=== PATIENT | female | born 1985 | race African-American/Black ===

== ENCOUNTER 2016-12-30 16:43 | Emergency (ER) | payer BC ==
[~2016-12-30] VITALS: Ht 162.6 cm; Wt 131.5 kg
[~2016-12-30 16:43] MED LIST: ALBU8.5H6 INH; CYCL5TAB PO
--- NOTE | 2016-12-30 17:52 | PHYS DOC ---
Past Medical History Past Medical History: Asthma Past Surgical History: No Surgical History Alcohol Use: Occasionally Drug Use: None Adult General Chief Complaint Chief Complaint: LOWER BACK PAIN OR INJURY [facility] Patient is a 31 year old female who presents with low back pain for two days. Reports history of atraumtaic low back pain Denies injury, numbness, tingling , incontinence, fever, urinary symptoms. Review of Systems Review of Systems Constitutional: Denies fever or chills Eyes: Denies change in visual acuity, redness, or eye pain HENT: Denies nasal congestion or sore throat Respiratory: Denies cough or shortness of breath Cardiovascular: No additional information not addressed in HPI GI: Denies abdominal pain, nausea, vomiting, bloody stools or diarrhea : Denies dysuria or hematuria Musculoskeletal: Back pain Integument: Denies rash or skin lesions Neurologic: Denies headache, focal weakness or sensory changes Endocrine: Denies polyuria or polydipsia Allergies Allergies Allergies Coded Allergies Type Severity Reaction Last Updated Verified No Known Drug Allergies 05/19/14 No Physical Exam Physical Exam Constitutional: Obese, no acute distress, non-toxic appearance. HENT: Normocephalic, atraumatic, bilateral external ears normal, oropharynx moist, no oral exudates, nose normal. Eyes: PERRLA, EOMI, conjunctiva normal, no discharge. Neck: Normal range of motion, no tenderness, supple, no stridor. Cardiovascular:Heart rate regular rhythm, no murmur Lungs & Thorax: Bilateral breath sounds clear to auscultation Abdomen: Bowel sounds normal, soft, no tenderness, no masses, no pulsatile masses. Skin: Warm, dry, no erythema, no rash. Back: paraspinous tenderness bilaterally. Extremities: No tenderness, no cyanosis, no clubbing, ROM intact, no edema. Neurologic: Alert and oriented X 3, normal motor function, normal sensory function, no focal deficits noted. Psychologic: Affect normal, judgement normal, mood normal. [] Current Patient Data Vital Signs Vital Signs Date Time Temp Pulse Resp B/P Pulse Ox O2 Delivery O2 Flow Rate FiO2 12/30/16 18:10 98.4 98 18 96 Room Air 98.4 Lab Values Laboratory Tests Test 12/30/16 18:10 Urine Collection Type Unknown Urine Color Yellow Urine Clarity Clear Urine pH 6.5 Urine Specific [place] 1.025 Urine Protein Negativemg/dL (NEG-TRACE) Urine Glucose (UA) Negativemg/dL (NEG) Urine Ketones (Stick) Negativemg/dL (NEG) Urine Blood Negative (NEG) Urine Nitrite Negative (NEG) Urine Bilirubin Negative (NEG) Urine Urobilinogen Dipstick 1.0mg/dL (0.2 mg/dL) Urine Leukocyte Esterase Negative (NEG) Urine RBC 0/HPF (0-2) Urine WBC 0/HPF (0-4) Urine Squamous Epithelial Cells Few/LPF Urine Bacteria Few/HPF (0-FEW) Urine Mucus Mod/LPF EKG EKG [] Radiology/Procedures Radiology/Procedures [] Impressions: low back pain Course & Med Decision Making Course & Med Decision Making Pertinent Labs and Imaging studies reviewed. (See chart for details) [] Dragon Disclaimer Dragon Disclaimer This electronic medical record was generated, in whole or in part, using a voice recognition dictation system. Departure Departure Impression: Primary Impression: Low back pain Disposition: HOME, SELF-CARE Condition: STABLE Referrals: ASHLEE MARIANO MD (PCP) Patient Instructions: Back Pain, Adult, [id number] Additional Instructions: Take medication as prescribed. Follow up with primary doctor in 1-2 days. Return if problems or concerns Scripts Cyclobenzaprine Hcl 10 Mg Tablet1 Tab PO QHS #20 TAB Prov:GOKUL CHURCH APRN 12/30/16 Tramadol Hcl 50 Mg [id number] Mg PO Q6H PRN PAIN #20 TAB Prov:GOKUL CHURCH APRN 12/30/16 GOKUL CHURCH APRN Dec 30, 2016 17:51
[2016-12-30 18:10] VITALS: BP 164/101
[2016-12-30 18:38] LABS: BILIRUBIN,URINE NEGATIVE (NEG); GLUCOSE,URINE NEGATIVE (NEG); NITRITE,URINE NEGATIVE (NEG); PH,URINE 6.5; PROTEIN,URINE NEGATIVE (NEG-TRACE)
[2016-12-30 18:51] LABS: BACTERIA,URINE FEW /HPF (0-FEW); RBC,URINE 0 /HPF (0-2); SQUAMOUS EPITHELIAL CELL,UR FEW /LPF; WBC,URINE 0 /HPF (0-4)
[2016-12-30] MEDS ORDERED: TRAM50TA PO (18:58)
[2016-12-30] MEDS ORDERED: CYCL10TA2 PO (18:58)
== END 2016-12-30 19:01 | disposition home or self-care (01) ==
LOC: ER 16:43
DX: M54.5 Low back pain (principal); J45.909 Unspecified asthma, uncomplicated
CPT/HCPCS: 81001; 99283

== ENCOUNTER 2017-07-14 14:41 | Emergency (ER) | payer BC ==
[~2017-07-14] VITALS: Ht 162.6 cm; Wt 136.1 kg
[~2017-07-14 14:41] MED LIST changes: +CYCL10TA2 PO; +TRAM50TA PO
[2017-07-14 15:54] LABS: BILIRUBIN,URINE NEGATIVE (NEG); GLUCOSE,URINE NEGATIVE (NEG); NITRITE,URINE NEGATIVE (NEG); PROTEIN,URINE NEGATIVE (NEG-TRACE)
[2017-07-14 15:57] LABS: BASO % 0 % (0-3); EOS % 4 % (0-3); HEMATOCRIT 33.4 % (36.0-47.0); HEMOGLOBIN 10.7 g/dL (12.0-15.5); LYMPH # 2.3 x10^3/uL (1.0-4.8); LYMPH % 20 % (24-48); MEAN CORPUSCULAR HEMOGLOBIN 23 pg (25-35); MEAN CORPUSCULAR HGB CONC 32 g/dL (31-37); MEAN CORPUSCULAR VOLUME 73 fL (79-100); MONO % 7 % (0-9); NEUT % 70 % (31-73); PLATELET COUNT 365 x10^3/uL (140-400); RED CELL DISTRIBUTION WIDTH 17.2 % (11.5-14.5); WHITE BLOOD COUNT 11.7 x10^3/uL (4.0-11.0)
[2017-07-14] MEDS ORDERED: IV NORMAL SALINE 1000ML BAG 1,000 ML IV ONE (16:00)
--- NOTE | 2017-07-14 16:01 | EKG ---
[facility] [address] [place] [address] Test Date: 2017-07-14 Test Time: 15:46:15 Pat Name: MICHAEL CALLE Department: Room: Gender: F Literature Teacher: : 1985 Requested By: AUGUST LISA Order Number: [id number] Reading MD: Sharmaine Camacho Measurements Intervals [place] Rate: 84 P: 23 NE: 128 QRS: 0 QRSD: 94 T: 10 QT: 384 QTc: 457 Interpretive Statements SINUS RHYTHM LEFTWARD AXIS OTHERWISE NORMAL ECG Electronically Signed On 07-15-2017 16:22:33 CDT by Sharmaine Camacho
[2017-07-14 16:05] LABS: CALCIUM 8.8 mg/dL (8.5-10.1); CREATININE 0.7 mg/dL (0.6-1.0); GFR 117.3
[2017-07-14 16:05] LABS: BACTERIA,URINE FEW /HPF (0-FEW); RBC,URINE 0 /HPF (0-2); SQUAMOUS EPITHELIAL CELL,UR MOD /LPF
[2017-07-14 16:10] LABS: ALBUMIN 3.3 g/dL (3.4-5.0); ALBUMIN/GLOBULIN RATIO 0.8 (1.0-1.7); TOTAL BILIRUBIN 0.5 mg/dL (0.2-1.0); TOTAL PROTEIN 7.3 g/dL (6.4-8.2)
[2017-07-14] MEDS ORDERED: hydroCHLOROthiazide 25 MG TABLET PO ONE (17:30)
[2017-07-14] MEDS ORDERED: hydroCHLOROthiazide 12.5 MG CAPSULE PO ONE ×2 (17:30)
[2017-07-14 18:45] VITALS: BP 163/99
[2017-07-14] MEDS ORDERED: HYDR50TA6 PO (18:57)
[2017-07-14] MEDS ORDERED: CEPH-264 PO (18:57)
--- NOTE | 2017-07-14 18:57 | PHYS DOC ---
Past Medical History Past Medical History: Asthma Past Surgical History: No Surgical History Alcohol Use: Occasionally Drug Use: None Adult General Chief Complaint Chief Complaint: WEAKNESS/GENERALIZED HPI HPI Patient is a 32 year old female who presents here today secondary to generalized weakness, sore throat, lightheadedness, and left lower abdominal pain. Patient reports that yesterday her blood pressure was elevated and she took a clonidine pill one of her coworkers. Patient reports that she does have a history of asthma. Patient denies any history of hypertension. Patient denies any diabetes liver longer kidney problems. Patient denies any prior abdominal or chest surgeries. Patient does not smoke drink or do any drugs. Patient has no known drug allergies. Patient denies any recent fevers shakes chills nausea vomiting diarrhea. Patient reports that she's had intermittent left lower quadrant, pain for approximately 1 year. Patient has a dysuria frequency urgency. Patient reports her last menstrual period was approximately one week ago. Review of systems: Constitutional: Denies fever or chills Eyes: Denies change in visual acuity, redness, or eye pain HENT: Denies nasal congestion or sore throat All other review systems are negative except as documented in the history of present illness portion. Physical exam: Constitutional: Well developed, well nourished, no acute distress, non-toxic appearance. HENT: Normocephalic, atraumatic, bilateral external ears normal, nose normal. Eyes: EOMI, conjunctiva normal, no discharge. Neck: Normal range of motion, no tenderness, supple, no stridor. Cardiovascular:Heart rate regular rhythm Lungs & Thorax: Bilateral breath sounds clear to auscultation no respiratory distress Abdomen: Bowel sounds normal, soft, no tenderness, no masses, no pulsatile masses. Skin: Warm, dry, no erythema, no rash. Back: No tenderness, no CVA tenderness. Extremities: No tenderness, no cyanosis, no clubbing, ROM intact, no edema. Neurologic: Alert and oriented X 3, normal motor function, normal sensory function, no focal deficits noted. Psychologic: Affect normal, judgement normal, mood normal. Patient's ER physical exam was unremarkable. Patient's HEENT exam was normal. Patient's oropharynx is clear. Patient has no lymphadenopathy. Patient and rigidity. Patient had normal funduscopic exam. No lower extremity edema, no JVD , no split S2, no S3. No signs or symptoms consistent with CHF left-sided or right-sided. Patient's ER workup was significant for a normal chest x-ray and EKG. Chest x-ray: Normal heart, no infiltrates or effusions, no emesis of pulmonary edema. Interpreted by LESLYE Odonnell. EKG: Normal sinus rhythm at a heart rate of 84. Nonspecific ST-T wave abnormalities. No criteria for LVH. Normal chamber sizes. Normal intervals. Interpreted by ER Jorge Luis Assessment and plan 1. Hypertension: She likely has untreated hypertension. Patient did take a clonidine from her coworkers yesterday secondary to it being elevated at work when they checked it. Patient's blood pressure here is been elevated in the 170- 190 range systolic. Patient will be started on hydrochlorothiazide here in the ER and will be instructed to follow-up with her primary care physician for further management of her hypertension. Patient be given HCTZ 50 mg by mouth prednisone dose was discharged with a prescription for HCTZ 50 mg daily. 2. Elevated BNP: A long discussion with the patient regarding her elevated BNP and its significance. Patient needs close follow-up with her primary care physician and referral to a lactation coordinator for an outpatient echocardiogram. I discussed with the patient the threat of hypertension for health long-term. I also discussed with her the threat of her obesity to her health long-term. Patient will follow-up with her primary care physician for further management of her weight loss program as well as her hypertension. Patient will need a cardiology follow-up as an outpatient. Patient is currently clinically and hemodynamically stable. Patient currently does not show any signs or symptoms of pulmonary edema, CHF. 3. Sore throat: Patient presents with sinus symptoms consistent with viral URI symptoms or hayfever. Patient was instructed to avoid Sudafed. Patient may take Benadryl as needed for the symptoms. Current Medications Current Medications Current Medications Medications (Trade) Dose Ordered Sig/Loyd Start Time Stop Time Status Last Admin Dose Admin Hydrochlorothiazide (Hydrodiuril) 50 mg 1X ONCE 07/14/17 17:30 07/14/17 17:31 Cancel Hydrochlorothiazide (Microzide) 50 mg 1X ONCE 07/14/17 17:30 07/14/17 17:31 DC 07/14/17 17:29 50 MG Sodium Chloride 1,000 ml @ 1,000 mls/hr 1X ONCE 07/14/17 16:00 07/14/17 16:59 DC 07/14/17 16:29 1,000 MLS/HR Allergies Allergies Allergies Coded Allergies Type Severity Reaction Last Updated Verified No Known Drug Allergies 05/19/14 No Current Patient Data Vital Signs Vital Signs Date Time Temp Pulse Resp B/P (MAP) Pulse Ox O2 Delivery O2 Flow Rate FiO2 07/14/17 17:30 82 158/104 (122) 99 Room Air 07/14/17 14:50 98.6 16 98.6 Lab Values Laboratory Tests Test 07/14/17 14:18 07/14/17 14:50 07/14/17 15:35 POC Urine HCG, Qualitative Hcg negative (Negative) Urine Collection Type Unknown Urine Color Yellow Urine Clarity Clear Urine pH 6.0 Urine Specific [place] 1.025 Urine Protein Negative mg/dL (NEG-TRACE) Urine Glucose (UA) Negative mg/dL (NEG) Urine Ketones (Stick) Negative mg/dL (NEG) Urine Blood Negative (NEG) Urine Nitrite Negative (NEG) Urine Bilirubin Negative (NEG) Urine Urobilinogen Dipstick 1.0 mg/dL (0.2 mg/dL) Urine Leukocyte Esterase Negative (NEG) Urine RBC 0 /HPF (0-2) Urine WBC 5-10 /HPF (0-4) Urine Squamous Epithelial Cells Mod /LPF Urine Bacteria Few /HPF (0-FEW) Urine Mucus Slight /LPF White Blood Count 11.7 x10^3/uL (4.0-11.0) H Red Blood Count 4.60 x10^6/uL (3.50-5.40) Hemoglobin 10.7 g/dL (12.0-15.5) L Hematocrit 33.4 % (36.0-47.0) L Mean Corpuscular Volume 73 fL (79-100) L Mean Corpuscular Hemoglobin 23 pg (25-35) L Mean Corpuscular Hemoglobin Concent 32 g/dL (31-37) Red Cell Distribution Width 17.2 % (11.5-14.5) H Platelet Count 365 x10^3/uL (140-400) Neutrophils (%) (Auto) 70 % (31-73) Lymphocytes (%) (Auto) 20 % (24-48) L Monocytes (%) (Auto) 7 % (0-9) Eosinophils (%) (Auto) 4 % (0-3) H Basophils (%) (Auto) 0 % (0-3) Neutrophils # (Auto) 8.1 x10^3uL (1.8-7.7) H Lymphocytes # (Auto) 2.3 x10^3/uL (1.0-4.8) Monocytes # (Auto) 0.8 x10^3/uL (0.0-1.1) Eosinophils # (Auto) 0.4 x10^3/uL (0.0-0.7) Basophils # (Auto) 0.0 x10^3/uL (0.0-0.2) Sodium Level 144 mmol/L (136-145) Potassium Level 4.0 mmol/L (3.5-5.1) Chloride Level 106 mmol/L (98-107) Carbon Dioxide Level 28 mmol/L (21-32) Anion Gap 10 (6-14) Blood Urea Nitrogen 16 mg/dL (7-20) Creatinine 0.7 mg/dL (0.6-1.0) Estimated GFR (Cockcroft-Gault) 117.3 BUN/Creatinine Ratio 23 (6-20) H Glucose Level 95 mg/dL (70-99) Calcium Level 8.8 mg/dL (8.5-10.1) Total Bilirubin 0.5 mg/dL (0.2-1.0) Aspartate Amino Transferase (AST) 17 U/L (15-37) Alanine Aminotransferase (ALT) 30 U/L (14-59) Alkaline Phosphatase 76 U/L (46-116) Troponin I Quantitative < 0.017 ng/mL (0.000-0.055) OB-Irz-D-Type Natriuretic Peptide 224 pg/mL (0-124) H Total Protein 7.3 g/dL (6.4-8.2) Albumin 3.3 g/dL (3.4-5.0) L Albumin/Globulin Ratio 0.8 (1.0-1.7) L Laboratory Tests 07/14/17 15:35 Laboratory Tests 07/14/17 15:35 EKG EKG [] Radiology/Procedures Radiology/Procedures [] Course & Med Decision Making Course & Med Decision Making Pertinent Labs and Imaging studies reviewed. (See chart for details) [] Dragon Disclaimer Dragon Disclaimer This electronic medical record was generated, in whole or in part, using a voice recognition dictation system. Departure Departure Impression: Primary Impression: Elevated brain natriuretic peptide (BNP) level Additional Impressions: Hypertension Generalized weakness Urinary tract infection Disposition: 01 HOME, SELF-CARE Condition: IMPROVED Referrals: ASHLEE MARIANO MD (PCP) Patient Instructions: BNP and NT-proBNP, Hypertension, Urinary Tract Infection Additional Instructions: Thank you for allowing us to participate in your care today. Please make sure he follow up with her family doctor to have your BNP repeated and further evaluated. Please make sure that they keep a close eye on your blood pressure. Please to the blood pressure medication that we have prescribed for you. Followup with your primary care physician in 3 days if your symptoms do not improve. Call your Primary Doctor tomorrow and inform them of your visit today. If you do not have a primary care provider you can ask for a list of our primary care providers. Return to the emergency department you have any new or concerning findings. This should be evaluated by the primary care physician and any necessary consulting services for continued management within a few days after discharge. Return to emergency room if you have any new or concerning symptoms including but not limited to fever, chills, nausea, vomiting, intractable pain, any new rashes, chest pain, shortness of air, uncontrolled bleeding, difficulty breathing, and/or vision loss. You may have been prescribed medication that can change in your level of thinking and ability to operate machinery. These medications include hydrocodone and Ativan. Also, Benadryl has been known to do this as well. Be sure to check with your pharmacist and ask if the medications you've prescribed can affect your level of consciousness. I recommend not operating heavy machinery or driving while on medication such as these. Scripts Hydrochlorothiazide (HYDROCHLOROTHIAZIDE TABLET) 50 Mg Tablet 1 TAB PO DAILY, #30 TAB 5 Refills Prov: AUGUST LISA MD 07/14/17 Cephalexin (KEFLEX) 500 Mg Capsule 500 MG PO QID for 10 Days, CAP Prov: AUGUST LISA MD 07/14/17 Problem Qualifiers AUGUST LISA MD Jul 14, 2017 18:57
--- NOTE | 2017-07-15 09:09 | RAD ---
Indication: Headache for a week. Hypertension. Dizziness and weakness for 2 days. Technique: Two-view chest radiograph was obtained. No comparison is available. Findings: The lungs are clear. There is no pleural effusion. The heart is not enlarged and there is no heart failure. Bony structures are intact. Impression: No acute thoracic findings.
== END 2017-07-14 19:05 | disposition home or self-care (01) ==
LOC: ER 14:41
DX: R79.89 Other specified abnormal findings of blood chemistry (principal); I10 Essential (primary) hypertension; N39.0 Urinary tract infection, site not specified; J45.909 Unspecified asthma, uncomplicated; R53.1 Weakness; J02.9 Acute pharyngitis, unspecified
CPT/HCPCS: 36415; 71020; 80053; 81001; 81025; 83880; 84484; 85025; 87086; 93005; 96360; 96361; 99285; J7030

== ENCOUNTER 2017-11-15 13:30 | Emergency (ER) | payer BC ==
[2017-11-15 13:56] LABS: URINE HCG POC HCG NEGATIVE (Negative)
[2017-11-15 14:21] LABS: BILIRUBIN,URINE NEGATIVE (NEG); GLUCOSE,URINE NEGATIVE (NEG); NITRITE,URINE NEGATIVE (NEG); PROTEIN,URINE NEGATIVE (NEG-TRACE)
[2017-11-15 14:28] LABS: BACTERIA,URINE FEW /HPF (0-FEW); RBC,URINE 0 /HPF (0-2); SQUAMOUS EPITHELIAL CELL,UR MOD /LPF; WBC,URINE 0 /HPF (0-4)
== END 2017-11-15 14:42 | disposition home or self-care (01) ==
LOC: ER 13:30
DX: M54.30 Sciatica, unspecified side (principal); J45.909 Unspecified asthma, uncomplicated; I10 Essential (primary) hypertension
CPT/HCPCS: 81001; 81025; 99283

== ENCOUNTER 2018-12-06 11:57 | Emergency (ER) | payer BC, OTHER ==
[~2018-12-06] VITALS: Ht 157.5 cm; Wt 136.5 kg
[~2018-12-06 11:57] MED LIST changes: +CEPH-264 PO; +HYDR50TA6 PO; +METH4TAB2 PO
[2018-12-06 12:05] VITALS: BP 162/103
[2018-12-06 13:13] LABS: BILIRUBIN,URINE NEGATIVE (NEG); CLARITY,URINE CLEAR; COLOR,URINE YELLOW; NITRITE,URINE NEGATIVE (NEG); PH,URINE 6.5; PROTEIN,URINE NEGATIVE (NEG-TRACE)
[2018-12-06] MEDS ORDERED: KETOROLAC 60 MG/2 ML VIAL. IM ONE (13:15)
[2018-12-06 13:28] LABS: BACTERIA,URINE 0 /HPF (0-FEW); RBC,URINE 0 /HPF (0-2); SQUAMOUS EPITHELIAL CELL,UR MOD /LPF; WBC,URINE 0 /HPF (0-4)
[2018-12-06] MEDS ORDERED: CYCL10TA2 PO (13:46)
[2018-12-06] MEDS ORDERED: NAPR500T8 PO (13:46)
--- NOTE | 2018-12-06 13:46 | PHYS DOC ---
Past Medical History Past Medical History: Asthma, Hypertension Past Surgical History: No Surgical History Alcohol Use: Occasionally Drug Use: None Adult General Chief Complaint Chief Complaint: BACK PAIN OR INJURY HPI HPI Patient is a 33 year old AA female who presents to the emergency room with complaints of right low back pain that radiates into her right buttock and hip for the last 3 days. 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 She denies any numbness, tingling, or weakness of her legs. She denies any saddle anesthesia, or loss of bowel or bladder incontinence. She rates her pain a 10 out of 10 on the pain scale. She states that the pain is exacerbated by movement, nothing seems to help reduce her pain. Review of Systems Review of Systems Constitutional: Denies fever or chills [] Respiratory: Denies cough or shortness of breath [] GI: Denies abdominal pain, nausea, vomiting, or diarrhea : Denies dysuria or hematuria; reports urinary frequency [] Musculoskeletal: See HPI Integument: Denies rash or skin lesions [] Neurologic: Denies headache, focal weakness or sensory changes [] All other systems were reviewed and found to be within normal limits, except as documented in this note. Current Medications Current Medications Current Medications Medications (Trade) Dose Ordered Sig/Loyd Start Time Stop Time Status Last Admin Dose Admin Ketorolac Tromethamine (Toradol Im) 30 mg 1X ONCE 12/06/18 13:15 12/06/18 13:16 DC 12/06/18 13:22 30 MG Allergies Allergies Allergies Coded Allergies Type Severity Reaction Last Updated Verified No Known Drug Allergies 05/19/14 No Physical Exam Physical Exam Constitutional: Well developed, well nourished, no acute distress, non-toxic appearance, obese [] HENT: Normocephalic, atraumatic, bilateral external ears normal, nose normal. [] Eyes: conjunctiva normal, no discharge. [] Neck: Normal range of motion, no tenderness, supple, no stridor. [] Skin: Warm, dry, no erythema, no rash. [] Back: No bony tenderness, R paraspinal lumbar tenderness, R straight leg positive for increased pain Extremities: No tenderness, no cyanosis, no clubbing, ROM intact, no edema. [] Neurologic: Alert and oriented X 3, normal motor function, normal sensory function, no focal deficits noted. [] Psychologic: Affect normal, judgement normal, mood normal. [] Current Patient Data Vital Signs Vital Signs Date Time Temp Pulse Resp B/P (MAP) Pulse Ox O2 Delivery O2 Flow Rate FiO2 12/06/18 12:05 97.6 95 16 162/103 (122) 97 Room Air 97.6 Lab Values Laboratory Tests Test 12/06/18 12:26 12/06/18 13:00 POC Urine HCG, Qualitative Hcg negative (Negative) Urine Collection Type Unknown Urine Color Yellow Urine Clarity Clear Urine pH 6.5 Urine Specific [place] 1.020 Urine Protein Negative mg/dL (NEG-TRACE) Urine Glucose (UA) Negative mg/dL (NEG) Urine Ketones (Stick) Negative mg/dL (NEG) Urine Blood Negative (NEG) Urine Nitrite Negative (NEG) Urine Bilirubin Negative (NEG) Urine Urobilinogen Dipstick 1.0 mg/dL (0.2 mg/dL) Urine Leukocyte Esterase Trace (NEG) Urine RBC 0 /HPF (0-2) Urine WBC 0 /HPF (0-4) Urine Squamous Epithelial Cells Mod /LPF Urine Bacteria 0 /HPF (0-FEW) Urine Mucus Mod /LPF EKG EKG [] Radiology/Procedures Radiology/Procedures [] Course & Med Decision Making Course & Med Decision Making Pertinent Labs and Imaging studies reviewed. (See chart for details) [] Dragon Disclaimer Dragon Disclaimer This electronic medical record was generated, in whole or in part, using a voice recognition dictation system. Departure Departure Impression: Primary Impression: Low back pain Additional Impression: Hypertension Disposition: HOME, SELF-CARE Condition: STABLE Referrals: ASHLEE MARIANO MD (PCP) Patient Instructions: Back Pain, Adult, Hypertension, [id number] Additional Instructions: Fill the prescriptions and use them as directed. Activity as tolerated. May apply ice or heat to the area for relief of discomfort. Follow-up with her primary care doctor if symptoms persist, return to ER if symptoms worsen.. Your blood pressure was elevated today, take your medications as prescribed and follow up with your PCP regarding your blood pressure. Scripts Naproxen (NAPROXEN) 500 Mg Tablet.dr 500 MG PO BID for 10 Days, #20 TAB.SR 0 Refills Prov: RUBINA KERNS NURSING MANAGER 12/06/18 Cyclobenzaprine Hcl (CYCLOBENZAPRINE HCL) 10 Mg Tablet 10 MG PO TID PRN for PAIN for 7 Days, #21 TAB 0 Refills Prov: RUBINA KERNS NURSING MANAGER 12/06/18 Problem Qualifiers Primary Impression: Low back pain Chronicity: acute Back pain laterality: right Sciatica presence: with sciatica Sciatica laterality: sciatica of right side Qualified Codes: M54.41 - Lumbago with sciatica, right side Additional Impression: Hypertension Hypertension type: unspecified Qualified Codes: I10 - Essential (primary) hypertension RUBINA KERNS NURSING MANAGER Dec 06, 2018 13:46
== END 2018-12-06 13:53 | disposition home or self-care (01) ==
LOC: ER 11:57
DX: M54.41 Lumbago with sciatica, right side (principal); I10 Essential (primary) hypertension; J45.909 Unspecified asthma, uncomplicated
CPT/HCPCS: 81001; 81025; 87086; 96372; 99283; J1885

== ENCOUNTER 2019-08-04 13:28 | Emergency (ER) | payer OTHER ==
[~2019-08-04] VITALS: Ht 165.1 cm; Wt 83.9 kg
[~2019-08-04 13:28] MED LIST changes: +NAPR500T8 PO
[2019-08-04] MEDS ORDERED: ORPHENADRINE CITRATE 60 MG/2 ML VIAL. IV ONE (14:15)
[2019-08-04] MEDS ORDERED: IV NORMAL SALINE 1000ML BAG 1,000 ML IV ONE (14:15)
--- NOTE | 2019-08-04 14:16 | PHYS DOC ---
Past Medical History Past Medical History: Asthma, Hypertension Past Surgical History: No Surgical History Alcohol Use: Occasionally Drug Use: None Adult General Chief Complaint Chief Complaint: ABDOMINAL PAIN HPI HPI Patient is a 34 year old female that presents with body aches, abdominal pain, back pain that radiates down both legs. She states of abdominal pain back pain been ongoing for 3 years. The patient however says in the last month the abdominal pain has gotten worse she's been having body aches, and feeling like she is bloated. The patient states that she to a GI doctor but the GI doctor wanted to do a scope and that scared her so she did not have that procedure done. Patient rates her pain as 10 out of 10 in severity and sharp. Patient has not taken medication at home. Review of Systems Review of Systems Constitutional: Denies fever or chills but reports body aches. Eyes: Denies change in visual acuity, redness, or eye pain [] HENT: Denies nasal congestion or sore throat [] Respiratory: Denies cough or shortness of breath [] Cardiovascular: No additional information not addressed in HPI [] GI: Reports abdominal pain Denies nausea, vomiting, bloody stools or diarrhea [] : Denies dysuria or hematuria [] Musculoskeletal: Reports back pain radiating down both legs. Integument: Denies rash or skin lesions [] Neurologic: Denies headache, focal weakness or sensory changes [] Endocrine: Denies polyuria or polydipsia [] Complete systems were reviewed and found to be within normal limits, except as documented in this note. Current Medications Current Medications Current Medications Medications (Trade) Dose Ordered Sig/[facility] Start Time Stop Time Status Last Admin Dose Admin Albuterol/ Ipratropium (Duoneb) 3 ml 1X ONCE 08/04/19 15:30 08/04/19 15:31 DC 08/04/19 15:50 3 ML Info (CONTRAST GIVEN -- Rx MONITORING) 1 each PRN DAILY PRN 08/04/19 14:45 08/06/19 14:44 Iohexol (Omnipaque 300 Mg/ml) 75 ml 1X ONCE 08/04/19 14:30 08/04/19 14:31 DC 08/04/19 15:12 75 ML Orphenadrine Citrate (Norflex) 60 mg 1X ONCE 08/04/19 14:15 08/04/19 14:16 DC 08/04/19 14:24 60 MG Sodium Chloride 1,000 ml @ 1,000 mls/hr 1X ONCE 08/04/19 14:15 08/04/19 15:14 DC 08/04/19 14:24 1,000 MLS/HR Allergies Allergies Allergies Coded Allergies Type Severity Reaction Last Updated Verified No Known Drug Allergies 05/19/14 No Physical Exam Physical Exam Constitutional: Well developed, well nourished, no acute distress, non-toxic ap pearance. [] HENT: Normocephalic, atraumatic, bilateral external ears normal, oropharynx moist, no oral exudates, nose normal. [] Eyes: PERRLA, EOMI, conjunctiva normal, no discharge. [] Neck: Normal range of motion, no tenderness, supple, no stridor. [] Cardiovascular:Heart rate regular rhythm, no murmur [] Lungs & Thorax: Bilateral breath sounds clear to auscultation [] Abdomen: Bowel sounds normal, soft, llq abdominal pain, no masses, no pulsatile masses. [] Skin: Warm, dry, no erythema, no rash. [] Back: Tenderness lower back Extremities: No tenderness, no cyanosis, no clubbing, ROM intact, no edema. [] Neurologic: Alert and oriented X 3, normal motor function, normal sensory function, no focal deficits noted. [] Psychologic: Affect normal, judgement normal, mood normal. [] Current Patient Data Vital Signs Vital Signs Date Time Temp Pulse Resp B/P (MAP) Pulse Ox O2 Delivery O2 Flow Rate FiO2 08/04/19 15:50 94 Room Air Lab Values Laboratory Tests Test 08/04/19 13:40 08/04/19 13:45 08/04/19 14:07 Urine Collection Type Unknown Urine Color Yellow Urine Clarity Clear Urine pH 6.0 Urine Specific [place] 1.025 Urine Protein Negative mg/dL (NEG-TRACE) Urine Glucose (UA) Negative mg/dL (NEG) Urine Ketones (Stick) Negative mg/dL (NEG) Urine Blood Negative (NEG) Urine Nitrite Negative (NEG) Urine Bilirubin Small (NEG) Urine Urobilinogen Dipstick 1.0 mg/dL (0.2 mg/dL) Urine Leukocyte Esterase Negative (NEG) Urine RBC 0 /HPF (0-2) Urine WBC 0 /HPF (0-4) Urine Squamous Epithelial Cells Many /LPF Urine Bacteria Few /HPF (0-FEW) Urine Mucus Mod /LPF POC Urine HCG, Qualitative Hcg negative (Negative) White Blood Count 9.7 x10^3/uL (4.0-11.0) Red Blood Count 4.70 x10^6/uL (3.50-5.40) Hemoglobin 11.1 g/dL (12.0-15.5) L Hematocrit 34.0 % (36.0-47.0) L Mean Corpuscular Volume 72 fL (79-100) L Mean Corpuscular Hemoglobin 24 pg (25-35) L Mean Corpuscular Hemoglobin Concent 33 g/dL (31-37) Red Cell Distribution Width 17.8 % (11.5-14.5) H Platelet Count 377 x10^3/uL (140-400) Neutrophils (%) (Auto) 63 % (31-73) Lymphocytes (%) (Auto) 23 % (24-48) L Monocytes (%) (Auto) 8 % (0-9) Eosinophils (%) (Auto) 5 % (0-3) H Basophils (%) (Auto) 1 % (0-3) Neutrophils # (Auto) 6.2 x10^3/uL (1.8-7.7) Lymphocytes # (Auto) 2.3 x10^3/uL (1.0-4.8) Monocytes # (Auto) 0.8 x10^3/uL (0.0-1.1) Eosinophils # (Auto) 0.5 x10^3/uL (0.0-0.7) Basophils # (Auto) 0.1 x10^3/uL (0.0-0.2) Sodium Level 142 mmol/L (136-145) Potassium Level 3.8 mmol/L (3.5-5.1) Chloride Level 107 mmol/L (98-107) Carbon Dioxide Level 28 mmol/L (21-32) Anion Gap 7 (6-14) Blood Urea Nitrogen 16 mg/dL (7-20) Creatinine 0.8 mg/dL (0.6-1.0) Estimated GFR (Cockcroft-Gault) 99.4 BUN/Creatinine Ratio 20 (6-20) Glucose Level 89 mg/dL (70-99) Calcium Level 8.9 mg/dL (8.5-10.1) Total Bilirubin 0.6 mg/dL (0.2-1.0) Aspartate Amino Transferase (AST) 20 U/L (15-37) Alanine Aminotransferase (ALT) 24 U/L (14-59) Alkaline Phosphatase 72 U/L (46-116) Total Protein 8.0 g/dL (6.4-8.2) Albumin 3.2 g/dL (3.4-5.0) L Albumin/Globulin Ratio 0.7 (1.0-1.7) L Lipase 74 U/L (73-393) Laboratory Tests 08/04/19 14:07 Laboratory Tests 08/04/19 14:07 EKG EKG [] Radiology/Procedures Radiology/Procedures [][facility] [address] [place] [address] IMAGING REPORT Signed PATIENT: MICHAEL CALLE DACCOUNT: [id number] : 1985 LOCATION: ER AGE: 34 SEX: F EXAM STATUS: REG ER ORD. PHYSICIAN: CHAYA WOLFE APRN REASON: llq abdominal pain PROCEDURE: CT ABD PELV W/ IV CONTRST ONLY CT scan abdomen and pelvis with contrast 08/04/2019 CLINICAL HISTORY: Left lower quadrant abdominal pain. TECHNIQUE: After the intravenous administration of 75 cc of Omnipaque 300 only, contiguous, 2 mm axial sections were obtained to the abdomen and pelvis. One or more of the following individualized dose reduction techniques were utilized for this study: 1. Automated exposure control. 2. Adjustment of the mA and/or kV according to patient size. 3. Use of iterative reconstruction technique. FINDINGS: Comparison study is dated 05/27/2015. Images through the lung bases demonstrate borderline cardiomegaly. Minimal dependent subsegmental atelectasis is seen bilaterally. The liver parenchyma has a decreased attenuation consistent with fatty infiltration. The spleen, pancreas, adrenal glands and kidneys are within normal limits. The abdominal aorta tapers normally. The gallbladder is well-distended. No free fluid or free air is seen within the abdomen. There is no evidence of bowel obstruction. The appendix is well-visualized and within normal limits. Images through the pelvis demonstrate the urinary bladder distended with urine. Calcifications are seen within the pelvis consistent with phleboliths. A 2.5 cm oval-shaped low-attenuation structure is seen in the left adnexa which likely represents a left ovarian cyst. No free fluid is seen. Degenerative changes are seen involving lower thoracic and throughout the lumbar spine along with both hips. IMPRESSION: 2.5 cm probable left ovarian cyst. Electronically signed by: Isrrael Raphael MD (08/04/2019 3:33 PM) [facility] DICTATED and SIGNED BY: ISRRAEL RAPHAEL MD DATE: 08/04/19 1533 Course & Med Decision Making Course & Med Decision Making Pertinent Labs and Imaging studies reviewed. (See chart for details) The patient has been to the ER multiple times over the last 3 years however the patient states over the last month her symptoms have worsened she has symptoms of bloating and body aches. Will get a CT scan and labs. Also appears to be having chronic sciatic pain. Dragon Disclaimer Dragon Disclaimer This electronic medical record was generated, in whole or in part, using a voice recognition dictation system. Departure Departure Impression: Primary Impression: Sciatica Additional Impression: Ovarian cyst Disposition: HOME, SELF-CARE Condition: STABLE Referrals: ASHLEE MARIANO MD (PCP) YAHIR [address]RE[address] MD Patient Instructions: Ovarian Cyst Additional Instructions: Thank you for visiting [facility]. We appreciate you trusting us with your care. If any additional problems come up don't hesitate to return to visit us. Please follow up with your primary care provider so they can plan additional care if needed and know about the problem that you had. If symptoms worsen come back to the Emergency Department. Any concerning symptoms that start such as chest pain, shortness of air, weakness or numbness on one side of the body, running high fevers or any other concerning symptoms return to the ER. Please fill your medications at any pharmacy and follow the prescription instructions. Scripts Orphenadrine Citrate (ORPHENADRINE CITRATE) 100 Mg Tablet.er 1 TAB PO BID PRN for MUSCLE SPASMS, #20 TAB Prov: CHAYA WOLFE CHYNA 08/04/19 Problem Qualifiers Primary Impression: Sciatica Laterality: bilateral Qualified Codes: M54.31 - Sciatica, right side; M54.32 - Sciatica, left side Additional Impression: Ovarian cyst Laterality: left Qualified Codes: N83.202 - Unspecified ovarian cyst, left side CHAYA WOLFE APRN Aug 04, 2019 14:16
[2019-08-04 14:20] LABS: BASO # 0.1 x10^3/uL (0.0-0.2); BASO % 1 % (0-3); EOS # 0.5 x10^3/uL (0.0-0.7); EOS % 5 % (0-3); HEMOGLOBIN 11.1 g/dL (12.0-15.5); LYMPH # 2.3 x10^3/uL (1.0-4.8); LYMPH % 23 % (24-48); MEAN CORPUSCULAR HEMOGLOBIN 24 pg (25-35); MEAN CORPUSCULAR HGB CONC 33 g/dL (31-37); MEAN CORPUSCULAR VOLUME 72 fL (79-100); MONO # 0.8 x10^3/uL (0.0-1.1); MONO % 8 % (0-9); NEUT # 6.2 x10^3/uL (1.8-7.7); NEUT % 63 % (31-73); PLATELET COUNT 377 x10^3/uL (140-400); RED CELL DISTRIBUTION WIDTH 17.8 % (11.5-14.5); WHITE BLOOD COUNT 9.7 x10^3/uL (4.0-11.0)
[2019-08-04 14:22] LABS: BILIRUBIN,URINE SMALL (NEG); CLARITY,URINE CLEAR; COLOR,URINE YELLOW; NITRITE,URINE NEGATIVE (NEG); PROTEIN,URINE NEGATIVE (NEG-TRACE)
[2019-08-04 14:27] LABS: CALCIUM 8.9 mg/dL (8.5-10.1); CREATININE 0.8 mg/dL (0.6-1.0); GFR 99.4; POTASSIUM 3.8 mmol/L (3.5-5.1)
[2019-08-04] MEDS ORDERED: IOHEXOL 300 MG/ML 100ML VIAL. IV ONE (14:30)
[2019-08-04 14:40] LABS: ALBUMIN 3.2 g/dL (3.4-5.0); ALBUMIN/GLOBULIN RATIO 0.7 (1.0-1.7); TOTAL BILIRUBIN 0.6 mg/dL (0.2-1.0)
[2019-08-04 14:40] LABS: BACTERIA,URINE FEW /HPF (0-FEW); RBC,URINE 0 /HPF (0-2); SQUAMOUS EPITHELIAL CELL,UR MANY /LPF; WBC,URINE 0 /HPF (0-4)
[2019-08-04] MEDS ORDERED: CONTRAST GIVEN. MC PRN (14:45)
[2019-08-04] MEDS ORDERED: IPRATRPIUM/ALBUTEROL 0.5/2.5MG 3 ML NEBU. NEB ONE ×2 (15:30)
--- NOTE | 2019-08-04 15:35 | RAD ---
CT scan abdomen and pelvis with contrast 08/04/2019 CLINICAL HISTORY: Left lower quadrant abdominal pain. TECHNIQUE: After the intravenous administration of 75 cc of Omnipaque 300 only, contiguous, 2 mm axial sections were obtained to the abdomen and pelvis. One or more of the following individualized dose reduction techniques were utilized for this study: 1. Automated exposure control. 2. Adjustment of the mA and/or kV according to patient size. 3. Use of iterative reconstruction technique. FINDINGS: Comparison study is dated 05/27/2015. Images through the lung bases demonstrate borderline cardiomegaly. Minimal dependent subsegmental atelectasis is seen bilaterally. The liver parenchyma has a decreased attenuation consistent with fatty infiltration. The spleen, pancreas, adrenal glands and kidneys are within normal limits. The abdominal aorta tapers normally. The gallbladder is well-distended. No free fluid or free air is seen within the abdomen. There is no evidence of bowel obstruction. The appendix is well-visualized and within normal limits. Images through the pelvis demonstrate the urinary bladder distended with urine. Calcifications are seen within the pelvis consistent with phleboliths. A 2.5 cm oval-shaped low-attenuation structure is seen in the left adnexa which likely represents a left ovarian cyst. No free fluid is seen. Degenerative changes are seen involving lower thoracic and throughout the lumbar spine along with both hips. IMPRESSION: 2.5 cm probable left ovarian cyst. Electronically signed by: Isrrael Raphael MD (08/04/2019 3:33 PM) [facility]
[2019-08-04] MEDS ORDERED: ORPH100T PO (16:11)
[2019-08-04 16:36] VITALS: BP 172/74
== END 2019-08-04 16:35 | disposition home or self-care (01) ==
LOC: ER 13:28
DX: N83.202 Unspecified ovarian cyst, left side (principal); M54.31 Sciatica, right side; M54.32 Sciatica, left side; I10 Essential (primary) hypertension; J45.909 Unspecified asthma, uncomplicated
CPT/HCPCS: 36415; 74177; 80053; 81001; 81025; 83690; 85025; 94640; 96374; 99285; J2360; J7030; J7620; Q9967